=== PATIENT | female | born 2000 | race Caucasian/White ===

== ENCOUNTER 2019-09-23 19:34 | Outpatient (CLI) | payer OTHER ==
[~2019-09-23] VITALS: Ht 160 cm; Wt 84.1 kg
--- NOTE | 2019-09-23 19:25 | NUR ---
G2L0. 35-3. Ambulatory to LDR 4 with significant other. Clean gown on. EFM and TOCO explained and applied. Pt states around 1600 this afternoon her arms and face started tingling so she went to a pharmacy and checked her BP and it was elevated at 159/89, recheck in 5 mins was 139/49 and next recheck in another 5 min was 129/99 so she decided to call the business continuity analyst doctor who told her to come to the hospital. Pt states tingling in her arms has gone away and in her face it has gotten better but is still a little bit tingly. Denies contractions, LOF or vaginal bleeding. Reports good movement. VS and Assessment completed. Plan of care explained to pt who verbalizes understanding. Pt appears very anxious and states this has happened before when she had an anxiety attack in the past. Call light in reach. 1944: at nurses station and updated on pts status. See physican notification. 2004: at nurses station and reviews FHR strip and contractions per TOCO, Pt states she is not feeling them. Pitcher of water given per orders. 2022: Pt off monitors and discharge instructions explained to pt. Questions answered. 2029: Pt ambualtory off unit and home with spouse.
[2019-09-23] MEDS ORDERED: IRON 27 MG PO (19:39)
[2019-09-23] MEDS ORDERED: PRENATAL MVI PO (19:39)
[2019-09-23 19:45] VITALS: BP 114/67; PULSE 103
[2019-09-23 20:00] VITALS: BP 117/69; PULSE 120; TEMP 98.7
[2019-09-23 20:15] VITALS: BP 110/65; PULSE 110
[2019-09-23 20:23] VITALS: BP 103/59; PULSE 100
== END 2019-09-23 20:30 | disposition home or self-care (01) ==
LOC: LDR 19:34 → LDRO 19:34 → LDR 20:21 → LDRO 20:30
DX: O13.3 Gestational [pregnancy-induced] hypertension without significant proteinuria, third trimester (principal); Z3A.35 35 weeks gestation of pregnancy
CPT/HCPCS: OP

== ENCOUNTER 2019-09-26 19:45 | Outpatient (CLI) | payer OTHER ==
[~2019-09-26] VITALS: Ht 160 cm; Wt 85.5 kg
[2019-09-26 19:45] VITALS: BP 115/63; PULSE 103; TEMP 98.4
[~2019-09-26 19:45] MED LIST: IRON 27 MG PO; PRENATAL MVI PO
[2019-09-26 20:03] VITALS: TEMP 98.4
[2019-09-26 20:15] VITALS: BP 100/57; PULSE 93
--- NOTE | 2019-09-26 20:21 | NUR ---
194 PT TO LR#6 AMBULATORY, C/O ? SROM TODAY, DAMP PANTIES AND PAD BUT NOT SOAKED, WAS TOLD TO COME GET CHECKED OUT. EFM APPLIED AND AMNIOTRACE NEG WITH NO COLOR CHANGE, VITAL SIGNS STABLE AND SVE /-2 WHICH PT STATES SHE WAS AT THE OFFICE YESTERDAY.
[2019-09-26 20:45] VITALS: BP 108/57; PULSE 92
--- NOTE | 2019-09-26 21:14 | NUR ---
2044 PT SVE IS UNCHANGED, EXPLAINED SHE MAY NEED TO INCREASED HER WATER INTAKE DUE TO THE HOT WEATHER. SHE STATED SHE IS NOT FEELING ANY CONTRACTIONS
== END 2019-09-26 21:00 | disposition home or self-care (01) ==
LOC: LDR 19:45 → LDRO 19:45
DX: O42.90 Premature rupture of membranes, unspecified as to length of time between rupture and onset of labor, unspecified weeks of gestation (principal); O26.893 Other specified pregnancy related conditions, third trimester; Z3A.35 35 weeks gestation of pregnancy
CPT/HCPCS: OP

== ENCOUNTER → 2019-10-18 | Outpatient (CLI) | payer OTHER | LOC: ZCOL.LAB 09:00 | DX: Z20.828 Contact with and (suspected) exposure to other viral communicable diseases (principal) ==

== ENCOUNTER 2019-10-24 07:01 | Inpatient (IN) | payer OTHER ==
[~2019-10-24] VITALS: Ht 160 cm; Wt 87.3 kg
[2019-10-24] VITALS (62 sets, daily range): BP systolic 86–184; BP diastolic 50–106; PULSE 78–131; TEMP 97.5–98.7
--- NOTE | 2019-10-24 07:05 | NUR ---
PATIENT TO LR 3 FOR INDUCTION. PATIENT CHANGED INTO GOWN. ON EFM. VITALS OBTAINED. PATIENT DENIES CONTRACTIONS, LEAKING OF FLUID, OR BLEEDING. PATIENT HERE WITH . IV STARTED, ASSESMENT COMPDAVIDE, CONSENTS SIGNED.
[2019-10-24 08:47] LABS: BASO % 0.3 % (0.0-2.0); EOS # 0.2 (0.0-0.7); EOS % 2.2 % (0-4.0); GRAN # 7.8 (1.4-6.5); GRAN % 75.2 % (42.2-75.2); HEMOGLOBIN 12.2 g/dl (12.5-16.0); LYMPH # 1.7 (1.2-3.4); LYMPH % 16.2 % (20.0-51.0); MEAN CELL VOLUME 91 fl (80.0-100.0); MEAN CORPUSCULAR HEMOGLOBIN 30 pg (27.0-31.0); MEAN CORPUSCULAR HGB CONC 33 g/dl (33.0-37.0); MEAN PLATELET VOLUME 10.1 fl (7.4-10.4); MONO # 0.6 (0.1-0.6); MONO % 5.6 % (1.7-9.3); PLATELET COUNT 223 K/mm3 (130-400); RED BLOOD COUNT 4.09 M/mm3 (4.10-5.30); REDCELL DISTRIBUTION WIDTH-CV 14.3 % (11.5-14.5)
--- NOTE | 2019-10-24 12:24 | NUR ---
[id number] INTERMITTENT MONITORING DUE TO SITTING UP FOR EPIDURAL
--- NOTE | 2019-10-24 14:40 | NUR ---
HEART TONES IN 60S FOR [address] PICKERING NOTIFIED
--- NOTE | 2019-10-24 16:30 | NUR ---
PATIENT FEELING LOTS OF RECTAL PRESSURE. SVE PREFORMED. EPIDURAL BUTTON PRESSED BY PATIENT AND REPOSITONED
--- NOTE | 2019-10-24 20:50 | NUR ---
2029- RN to bedside to begin practice pushing. RN remains at bedside. 2034- Priddle notified that pt. is pushing adequately. 2039- Priddle to bedside. Pt and room set up for delivery. 2049- SVE of viable female . to mother abdomen and nursery nurse assumes care at this time. Pitocin turned off. 2051- SVE of placenta. Pitocin turned on and at 333ml/hr per protocol. Fundus massaged to firm by RN, moderate amount of blood and small clots noted. Repairs made for 2nd degree. EBL noted to be 200 per provider. Pt. red dalton and 100ml of yellow urine noted by provider. 904- Repairs done. Epidural turned off. Recovery starts. Pt and room put back together. Pericare provided and ice pack to perineum. Fundas firm, Down 1 and moderate amount of blood noted.
--- NOTE | 2019-10-24 23:05 | NUR ---
Pt able to lift and hold each leg off of bed for 5 seconds. Pt positioned to sitting on edge of bed. Epidural catheter removed. Tip smooth, blue, and intact. Pt able to ambulate to bathroom with standby assistance. Pt able to void 600. Pericare explained and provided. Clean gown on. Mesh panties and peripad applied. Pt ambulated to room 207 with belongings.
[2019-10-25 03:40] VITALS: BP 97/58; PULSE 100; TEMP 97.7
[2019-10-25 07:00] VITALS: BP 99/66; PULSE 97; TEMP 98.3
--- NOTE | 2019-10-25 09:44 | NUR ---
Initial visit attempt; Family resting. Manual Equipment Mechanic left card offering congratulations and God's blessings for the of their daughter and information regarding the availability of spiritual care at our hospital.
[2019-10-25 10:55] VITALS: BP 96/59; PULSE 99; TEMP 98.6
[2019-10-25 16:47] VITALS: BP 114/64; PULSE 105; TEMP 98.2
[2019-10-25 20:47] VITALS: BP 96/63; PULSE 96; TEMP 99.1
[2019-10-26] MEDS ORDERED: MOTRIN 800800 MG/TAB PO (07:09)
[2019-10-26 08:00] VITALS: BP 97/65; PULSE 89; TEMP 97.9
== END 2019-10-26 14:15 | disposition home or self-care (01) | DRG 807 ==
LOC: LDR 07:01 → OB 07:01 → LDR 08:18 → OB 10:38 → LDR 12:48 → OB 23:20
PROVIDERS: ADMIT Obstetrics & Gynecology
PROC: 10E0XZZ Delivery of Products of Conception, External Approach (ICD-10-PCS; principal; 2019-10-24)
PROC: 0KQM0ZZ Repair Perineum Muscle, Open Approach (ICD-10-PCS; 2019-10-24)
PROC: 10907ZC Drainage of Amniotic Fluid, Therapeutic from Products of Conception, Via Natural or Artificial Opening (ICD-10-PCS; 2019-10-24)
DX: O99.02 Anemia complicating childbirth (principal); Z37.0 Single live birth; D64.9 Anemia, unspecified; O70.1 Second degree perineal laceration during delivery; O99.824 Streptococcus B carrier state complicating childbirth; Z3A.39 39 weeks gestation of pregnancy
CPT/HCPCS: J2540; J2590; J7120